=== PATIENT | male | born 1990 | race Caucasian/White ===

== ENCOUNTER 2022-04-16 11:58 | Emergency (ER) | payer OTHER ==
[~2022-04-16] VITALS: Ht 175.3 cm; Wt 52.2 kg
[2022-04-16] MEDS ORDERED: BUPRENORPHIN-N1 EAC5 SL (12:09)
[2022-04-16] MEDS ORDERED: ESCI20 PO (12:09)
== END 2022-04-16 12:36 | disposition home or self-care (01) ==
LOC: ER 11:58
DX: Z76.0 Encounter for issue of repeat prescription (principal); Z79.899 Other long term (current) drug therapy
CPT/HCPCS: A9270

== ENCOUNTER 2023-06-12 02:13 | Emergency (ER) | payer OTHER ==
[~2023-06-12] VITALS: Ht 177.8 cm; Wt 72.6 kg
[~2023-06-12 02:13] MED LIST: BUPRENORPHIN-N1 EAC5 SL; ESCI20 PO
[2023-06-12 03:21] LABS: BASOPHILS ABSOLUTE AUTO 0.08 K/mm3 (0.00-0.23); BASOPHILS PERCENT AUTO 1 % (0-2); EOSINOPHILS ABSOLUTE AUTO 0.05 K/mm3 (0.00-0.68); EOSINOPHILS PERCENT AUTO 1 % (0-6); IMMATURE GRAN ABSOLUTE AUTO 0.01 K/mm3 (0.00-0.10); IMMATURE GRAN PERCENT AUTO 0 % (0-1); LYMPHOCYTES ABSOLUTE AUTO 2.47 K/mm3 (0.84-5.20); LYMPHOCYTES PERCENT AUTO 43 % (21-46); MONOCYTES ABSOLUTE AUTO 0.46 K/mm3 (0.16-1.47); MONOCYTES PERCENT AUTO 8 % (4-13); Mean Corpuscular HGB 30.7 pg (26.0-34.0); Mean Corpuscular HGB Conc 34.1 g/dL (31.5-36.5); Mean Corpuscular Volume 90 fL (80-100); Mean Platelet Volume 9.2 fL (9.1-12.4); NEUTROPHILS ABSOLUTE AUTO 2.69 K/mm3 (1.96-9.15); NEUTROPHILS PERCENT AUTO 47 % (41-73); Platelet Count 195 K/mm3 (150-400); RDW Coefficient Variation 11.6 % (11.7-14.2); RDW Standard Deviation 38.7 fL (35.1-46.3); Red Blood Cell Count 4.88 M/mm3 (4.30-5.90); White Blood Cell Count 5.76 K/mm3 (4.00-11.30)
[2023-06-12 04:19] LABS: Salicylate <1.7 mg/dL (2.8-20.0); Thyroxine (T4) 9.1 ug/dL (4.5-12.1)
[2023-06-12] MEDS ORDERED: CHLO25 PO (05:12)
[2023-06-12 05:22] LABS: Alanine Aminotransfer (ALT/SGP 67 U/L (12-78); Albumin, Blood 4.2 g/dL (3.4-5.0); Alk Phos 134 U/L (50-136); Anion Gap 6 mmol/L (6-16); Aspartate Aminotrans (AST/SGOT 108 U/L (12-37); Bilirubin, Total 0.3 mg/dL (0.1-1.0); Blood Urea Nitrogen 6 mg/dL (8-24); Bun/Creatinine Ratio 7.8 (12.0-20.0); CO2, Blood 31 mmol/L (21-32); Calcium, Blood 8.5 mg/dL (8.5-10.1); Chloride, Blood 106 mmol/L (98-108); Creatinine, Blood 0.77 mg/dL (0.60-1.20); Globulin, Blood 4.1 g/dL (2.2-4.0); Glomerular Filtration Rate 124 (60-); Glucose, Blood 109 mg/dL (70-99); Potassium, Blood 3.5 mmol/L (3.5-5.5); Sodium, Blood 143 mmol/L (136-145); Total Protein, Blood 8.3 g/dL (6.4-8.2)
[2023-06-12 05:24] VITALS: BP 148/95
[2023-06-12 05:28] LABS: Ethanol (Alcohol), Blood, Med 312 mg/dL
[2023-06-12 05:53] LABS: Acetaminophen, Random <2.0 ug/mL (10.0-30.0)
== END 2023-06-12 05:25 | disposition home or self-care (01) ==
LOC: ER 02:13
PROVIDERS: Emergency Medicine
DX: F10.229 Alcohol dependence with intoxication, unspecified (principal); R44.0 Auditory hallucinations
CPT/HCPCS: 36415; 80053; 84436; 84443; 85025; 99284; A9270; G0480